=== PATIENT | male | born 1940 | race African-American/Black ===

== ENCOUNTER 2017-04-07 15:51 | Emergency (ER) | payer MEDICARE, MEDICAID ==
[~2017-04-07] VITALS: Ht 180.3 cm; Wt 77.0 kg
[~2017-04-07 15:51] MED LIST: ASPI-1159 PO; GABA-531 PO; HYDR-519 PO; IBUP-1509 PO
[2017-04-07 19:45] LABS: BASOPHILS % 0.4 % (0.0-2.0); EOSINOPHILS % 2.3 % (0.0-5.0); HEMATOCRIT. 39.9 % (42.0-52.0); LYMPHOCYTES % 14.4 % (20.0-50.0); MEAN CORPUSCULAR VOLUME 89.1 fL (80.0-94.0); MEAN PLATELET VOLUME 8.5 fl (7.4-10.4); NEUTROPHILS % 68.9 % (40.0-76.0); PLATELET 203 x1000/uL (130-400); RED BLOOD CELL COUNT 4.48 mill/uL (4.7-6.1); RED CELL DISTRIBUTION WIDTH 14.6 % (11.6-14.6)
[2017-04-07 19:53] LABS: INR 1.1; PARTIAL THROMBOPLASTIN TIME 25.9 sec (23.4-31.0); PROTHROMBIN TIME 11.6 sec (9.4-11.6)
[2017-04-07 19:59] LABS: CARBON DIOXIDE 30 mEq/L (21-32); CHLORIDE 105 mEq/L (98-107)
[2017-04-07 20:01] LABS: TROPONIN I < 0.02 ng/mL (0.00-0.04)
[2017-04-07 22:00] VITALS: BP 128/90
== END 2017-04-07 22:00 | disposition home or self-care (01) ==
LOC: ER 18:49
DX: G89.29 Other chronic pain (principal); M54.5 Low back pain; M54.2 Cervicalgia; M79.605 Pain in left leg; M79.604 Pain in right leg; M79.602 Pain in left arm; M79.601 Pain in right arm; F17.200 Nicotine dependence, unspecified, uncomplicated; I50.9 Heart failure, unspecified; I11.0 Hypertensive heart disease with heart failure; Z79.82 Long term (current) use of aspirin; Z88.2 Allergy status to sulfonamides; Z96.649 Presence of unspecified artificial hip joint; Z98.890 Other specified postprocedural states; Z90.49 Acquired absence of other specified parts of digestive tract
CPT/HCPCS: 36415; 71010; 80053; 83880; 84484; 85025; 85610; 85730; 93005; 99285

== ENCOUNTER 2017-07-01 16:11 | Emergency (ER) | payer MEDICARE, MEDICAID ==
[~2017-07-01] VITALS: Ht 180.3 cm; Wt 55.0 kg
[~2017-07-01 16:11] MED LIST changes: -IBUP-1509 PO; +IBUP-2028 PO
[2017-07-01 16:47] VITALS: BP 103/57
[2017-07-01] MEDS ORDERED: HYDR-523 PO (16:52)
== END 2017-07-01 18:10 | disposition left against medical advice (07) ==
LOC: ER 17:33
DX: Z53.21 Procedure and treatment not carried out due to patient leaving prior to being seen by health care provider (principal)
CPT/HCPCS: 93005